=== PATIENT | male | born 1990 | race Caucasian/White ===

== ENCOUNTER 2018-07-18 02:42 | Observation (INO) ==
--- NOTE | 2018-07-18 04:08 | Emergency Department Note ---
Disposition Clinical Impression: Intentional benzodiazepine overdose Qualifiers: Encounter type: initial encounter Qualified Code(s): T42.4X2A - Poisoning by benzodiazepines, intentional self-harm, initial encounter Disposition: Admitted As Inpatient Condition: Good Time of Disposition: 05:57 General Adult HPI - General Chief complaint: ED Psychiatric Symptoms Stated complaint: Took a bunch of xanax & intoxicated Time Seen by Provider: 07/18/18 02:43 Source: patient, EMS Limitations: no limitations Nursing Notes Reviewed: Yes Vital Signs Reviewed: Yes - History of Present Illness HPI Narrative: Patient was evaluated at [facility] emergency department and was referred here for psychiatric evaluation. Please refer to their records for complete det ails of the history and physical examination. Patient drank some beer earlier this evening and took a total of approximately 6 mg of Xanax. He states that he was not wanting to hurt himself. He states he just wanted to go to sleep fast and sleep for a long time but had no intention of harming himself. At present he is awake alert and oriented and denies any suicidal or homicidal ideation. He had lab work at the [place] emergency department and has been medically cleared for psychiatric evaluation other than a 6 hour observation. Recommended by poison control for the Xanax ingestion. The ingestion was approximately 10 PM. It is now 4 AM and he is awake alert and oriented and medically cleared for psychiatric evaluation. [address] psychiatry department will be consulted to evaluate patient here in the emergency department. Pain Scale: 0 - Related Data Home Medications Medication Instructions Recorded Confirmed No Known Home Drugs 05/16/18 05/16/18 Allergies Allergy/AdvReac Type Severity Reaction Status Date / Time No Known Allergies Allergy Verified 05/16/18 14:14 Constitutional: Denies: fever Cardiovascular: Denies: chest pain Respiratory: Denies: dyspnea Gastrointestinal: Denies: abdominal pain, vomiting Neurological: Denies: headache Psychiatric: Denies: suicidal thoughts, homicidal thoughts, auditory hallucinations, visual hallucinations Past Medical History - Past Medical History Medical history: Reports: no medical history Surgical history: Reports: no surgical history Psychiatric history: Reports: no psych history - Social History Smoking Status: Never smoker Smokeless Tobacco Status: Yes Alcohol use: Reports: occasionally Drug use: Reports: none Physical Exam - General Limitations: no limitations General appearance: alert, in no apparent distress - Head Head exam: atraumatic, normocephalic - Chest Chest inspection: Present: normal inspection, symmetric chest wall rise. Absent: tenderness - Respiratory Respiratory exam: Present: normal lung sounds bilaterally. Absent: respiratory distress, wheezes - Cardiovascular Cardiovascular exam: Present: regular rate, normal rhythm, normal heart sounds - Abdominal Exam Abdominal exam: Present: soft, Non-Tender, normal bowel sounds - Extremities Exam Extremities exam: Present: normal inspection, full ROM. Absent: tenderness - Neurological Exam Neurological exam: Present: alert, oriented X3. Absent: motor sensory deficit - Psychiatric Psychiatric exam: Present: normal affect, normal mood. Absent: homicidal ideation, suicidal ideation - Skin Skin exam: Present: warm, dry, intact, normal color. Absent: cyanosis, diaphoresis Course - Reevaluation(s) Reevaluation #1: Patient has been observed for 6 hours and medically cleared for psychiatric evaluation. [address] psychiatry department consulted to evaluate patient. Time: 04:11 Reevaluation #2: After evaluation by the [address] psychiatry Department patient is being admitted to the [address] psychiatric unit. Time: 05:56 Vital Signs Temperature 98.4 F 07/18/18 02:46 Pulse Rate 61 07/18/18 02:46 Respiratory Rate 16 07/18/18 02:46 Blood Pressure 112/69 07/18/18 02:46 O2 Sat by Pulse Oximetry 100 07/18/18 02:46 Temperature 98.4 F 07/18/18 02:46 Pulse Rate 70 07/18/18 03:03 Respiratory Rate 16 07/18/18 02:46 Blood Pressure 118/77 07/18/18 03:03 O2 Sat by Pulse Oximetry 100 07/18/18 03:03 Oxygen Delivery Oxygen Delivery Room Air Medical Decision Making - Lab Data Lab results reviewed: Yes I reviewed the patient's lab results. Labs from [facility] reviewed.
[2018-07-18] MEDS ORDERED: hydrOXYzine pamoate 25 MG CAPSULE PO PRN (05:53)
[2018-07-18] MEDS ORDERED: *HR* LORazepam 2 MG/ML VIAL IM PRN (05:53)
[2018-07-18] MEDS ORDERED: MOM Conc 10 ML UD.LIQ PO PRN (05:53)
[2018-07-18] MEDS ORDERED: Haloperidol Lactate 5 MG/ML VIAL IM PRN (05:53)
[2018-07-18] MEDS ORDERED: Mag Hydrox/Al Hydrox/Simeth 30 ML UDC PO PRN (05:53)
[2018-07-18] MEDS ORDERED: Acetaminophen 325 MG TABLET PO PRN (05:53)
[2018-07-18] MEDS ORDERED: *HR* LORazepam 1 MG TABLET PO PRN (05:53)
[2018-07-18 06:50] VITALS: BP 108/77
[2018-07-18] MEDS ORDERED: Nicotine 2 MG GUM BC PRN (08:20)
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
== END 2018-07-18 12:00 | disposition home or self-care (01) ==
LOC: EMEROOARM 02:42 → 1ANU 02:42 → SUATTDRO 05:39 → 1ANU 06:40
PROVIDERS: ADMIT Psychiatry & Neurology Psychiatry; ATTEND Psychiatry & Neurology Psychiatry